=== PATIENT | female | born 1970 | race Caucasian/White ===

== ENCOUNTER 2023-02-06 08:04 | Outpatient (REF) | payer OTHER, SELFPAY ==
[2023-02-06 08:19] LABS: MANUAL DIFF FLAG NO
[2023-02-06 08:31] LABS: Basophils Percent Auto 0.5 % (0-2); Eosinophils Absolute Auto 0.1 X10*3/uL (0.0-0.4); Eosinophils Percent Auto 2.8 % (0-4); Hematocrit 40.5 % (37.0-47.0); Hemoglobin 12.9 g/dl (12.0-16.0); Imm Gran Abs Auto 0.01 X10*3/uL (0.00-0.03); Imm Gran Pct Auto 0.2 % (0.0-0.4); Lymphocytes Absolute Auto 1.9 X10*3/uL (1.2-4.9); Lymphocytes Percent Auto 43.8 % (20-40); Mean Corpuscular HGB Conc 31.9 g/dl (31.0-35.0); Mean Corpuscular Hemoglobin 28.5 pg (27.0-33.0); Mean Corpuscular Volume 89.4 fL (80.0-98.0); Mean Platelet Volume 9.7 fL (9.4-12.3); Monocytes Absolute Auto 0.3 X10*3/uL (0.1-1.2); Monocytes Percent Auto 7.7 % (2-11); Neutrophils Absolute Auto 1.9 x10*3/uL (2.0-8.3); Platelet Count 291 X10*3/uL (160-400); Red Blood Count 4.53 X10*6/uL (4.20-5.50); Red Cell Distribution Width 11.5 % (11.0-16.0); White Blood Count 4.3 X10*3/uL (4.8-10.8)
[2023-02-06 09:05] LABS: Alanine Aminotransferase 13 U/L (0-31); Albumin Level 4.4 g/dL (3.5-5.0); Alkaline Phosphatase 82 U/L (39-117); Anion Gap 15 (12-20); Aspartate Amino Transferase 18 U/L (5-31); Bilirubin Total 0.7 mg/dL (0.0-1.0); Blood Urea Nitrogen 12 mg/dL (9-16); C Reactive Protein 0.17 mg/dL (< or = 0.50); Carbon Dioxide 27 mmol/L (22-29); Chloride 106 mmol/L (96-108); Estimated Glomerular Filt Rate 59; Glucose Random 105 mg/dL (60-115); Potassium 4.8 mmol/L (3.3-5.1); Sodium 143 mmol/L (135-145); Total Protein 6.7 g/dL (6.5-8.0)
[2023-02-06 09:21] LABS: Erythrocyte Sedimentation Rate 2 MM/HR (0-20)
[2023-02-06 09:22] LABS: TSH reflex Free T4 2.93 uIU/mL (0.32-4.0)
== END 2023-02-06 08:05 | disposition home or self-care (01) ==
LOC: HO.LAB 08:04
PROVIDERS: PCP Student in an Organized Health Care Education/Training Program; Visit Provider Student in an Organized Health Care Education/Training Program
DX: M25.50 Pain in unspecified joint (principal); R53.83 Other fatigue
CPT/HCPCS: 36415; 80053; 84443; 85025; 85652; 86140

== ENCOUNTER 2023-11-08 08:32 | Emergency (ER) | payer OTHER, SELFPAY ==
--- NOTE | ~2023-11-08 | CT_ITS ---
EXAMINATION: CT ABDOMEN AND PELVIS WITHOUT CONTRAST CLINICAL INFORMATION: Pain. Question stone. COMPARISON: None. TECHNIQUE: Multidetector volumetric imaging was performed from the superior aspect of the liver through the pubic symphysis. Sagittal and coronal reformatted images were obtained on the technologist workstation. This CT examination was performed using dose optimization techniques as appropriate, variously including the following: *Automated exposure control *Adjustment of mA and/or kV according to patient size (this includes techniques or standardized protocols for targeted exams where dose is matched to indication/reason for exam; i.e. extremities or head) *Use of iterative reconstruction technique DLP: 472.8 mGy-cm. FINDINGS: LUNG BASES: Scattered linear bands of atelectasis seen in the lung bases bilaterally. LIVER, GALLBLADDER, AND BILIARY TREE: The liver is normal in size, shape, and attenuation. No focal hepatic lesion on noncontrast imaging. No biliary ductal dilatation is present. The gallbladder is unremarkable with no evidence of radiopaque gallstones, gallbladder wall thickening, or obvious pericholecystic inflammatory changes. PANCREAS: Unremarkable on noncontrast imaging. SPLEEN: Unremarkable. ADRENAL GLANDS: Unremarkable on noncontrast imaging. KIDNEYS AND URETERS: The kidneys are normal in size, shape, and attenuation. No hydronephrosis, hydroureter, or calculi seen. No perinephric stranding. There is a exophytic 1.9 x 2.9 x 1.9 cm thin-walled avascular cyst in the lower pole of the right kidney, measuring fluid density, consistent with a benign cyst, which warrants no additional imaging follow-up BLADDER: Decompressed and suboptimally assessed, but grossly unremarkable. No bladder calculi.. PELVIC VISCERA: Unremarkable. GASTROINTESTINAL TRACT: The small and large bowel are decompressed. There are scattered descending and sigmoid colonic diverticula with no evidence of acute diverticulitis.. The appendix is retrocecal in location and extends up to the level of Morison's pouch. There is a 0.3 cm density seen in the distal appendix, consistent with a tiny appendicolith. The appendix is otherwise unremarkable. ABDOMINAL WALL: There is a tiny fat-containing umbilical hernia. LYMPH NODES, VASCULAR: Abdominal aorta is normal in caliber with mild atherosclerotic calcifications of the distal abdominal aorta are seen. No periaortic collections. No abdominal or pelvic adenopathy or free fluid. OSSEOUS STRUCTURES: Mild degenerative disc disease and moderate vertebral spondylosis in lower thoracic spine. CT/CT abdomen pelvis wo IV con IMPRESSION: * No evidence of nephrolithiasis or obstructive uropathy. * No acute intra-abdominal or pelvic process seen. * Incidental findings include scattered linear bands of atelectasis in the lung bases, right renal cyst, which warrants no additional imaging follow-up, tiny fat-containing umbilical hernia, and mild atherosclerotic vascular calcifications of the abdominal aorta.
[2023-11-08 08:36] VITALS: BP 178/107; PULSE 88; RESP 16; TEMP 36.9; O2SAT 98; BMI 30.5
--- NOTE | 2023-11-08 09:16 | ED_ITS ---
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 She has history of fibromyalgia prior back pain. Onset (ago): day(s) (2) Location: back Radiation: non-radiation Severity: mild Quality: burning Pain Consistency: constant Relieving factors: none Exacerbating factors: none Associated symptoms: denies other symptoms Related Data Previous Rx's Medication Instructions Recorded diazepam 5 mg tablet (Valium) 5 mg PO BID PRN muscle spasm #7 11/08/23 tabs Allergies Allergy/AdvReac Type Severity Reaction Status Date / Time codeine Allergy Itching Verified 11/08/23 09:06 omeprazole [From Prilosec] Allergy Nausea and Verified 11/08/23 09:06 Vomiting povidone-iodine Allergy Blister Verified 11/08/23 09:06 [From Betadine] adhesive AdvReac Unknown Verified 11/08/23 09:06 Review of Systems 2 Eyes: Eyes: Reports no additional eye complaints ENT: Reports system reviewed and no additional complaints, except as documented Cardiovascular: Cardiovascular: Reports no additional cardiovascular complaints Musculoskeletal: Musculoskeletal: Reports other Comments: Lower back pain PMFSH Past Medical History PMFSH Narrative: Fibromyalgia prior lower back pain Social History Social History Smoked in Last 30 Days: Yes Use of substances other than those prescribed or required for medical reasons: No Advance Directives: No Advance Directives Information Provided: No Patient : No Physical Exam ED Vital Signs: Vital Signs - 24 hr 11/08/23 08:36 11/08/23 11:00 Temperature 98.4 F 97.2 F Pulse Rate 88 63 Respiratory Rate 16 18 Blood Pressure 178/107 H 154/80 H Pulse Oximetry 98 96 Oxygen Delivery Method Room Air Room Air BMI result Body Mass Index 30.5 Const General: cooperative Nutritional Appearance: well nourished Orientation/consciousness: oriented to person and patient oriented x3 Limitations: no limitations HENMT Head: Yes normal to inspection General nose exam: Normal external nose present Face and sinus: Yes normal facial exam Mouth: Normal oral and palatal mucosa present Teeth and gingiva: dentition normal Throat: Yes posterior oropharynx normal Neck Neck: Yes normal visual inspection Thyroid: Thyroid normal Chest Chest palpation & inspection: normal inspection of the chest Resp Effort & Inspection: normal respiratory effort Auscultation: clear to auscultation bilaterally Cardio Jugular venous distension: no JVD Rate: regular rate Rhythm: regular rhythm GI Inspection: Yes normal to inspection Palpation (GI): Soft to palpation and not firm Auscultation: normal bowel sounds General: Yes CVA tenderness and Yes no CVA tenderness Back/Spine/Pelvis Back: no CVA tenderness and CVA tenderness Neuro General: oriented to person and patient oriented x3 Cranial nerves: Yes CN's II-XII intact bilaterally Course Reevaluation(s) Reevaluation #1: Workup completed CT scan shows no acute pathology, labs normal UA clear at this point I think it could discharge her home Time: 11:09 Medical Decision Making Medical Decision Making [facility] Narrative: Patient presented complaining of lower back pain she is ambulatory to the emergency department will obtain imaging UA reassessed Differential Diagnosis Differential Diagnoses: The differential diagnosis associated with the presentation includes Differential diagnosis is kidney stone/ lower back strain muscular strain /urinary tract infection/pyelonephritis Lab Data [facility] Lab Attestation statement: I reviewed the patient's lab results. 11/08/23 09:15 11/08/23 09:15 Labs: Lab Results 11/08/23 Range/Units 09:15 WBC 4.7 L (4.8-10.8) X10*3/uL RBC 4.32 (4.20-5.50) X10*6/uL Hgb 12.7 (12.0-16.0) g/dl Hct 38.6 (37.0-47.0) % MCV 89.4 (80.0-98.0) fL MCH 29.4 (27.0-33.0) pg MCHC 32.9 (31.0-35.0) g/dl RDW 11.3 (11.0-16.0) % Plt Count 226 (160-400) X10*3/uL MPV 9.4 (9.4-12.3) fL Immature Gran % (Auto) 0.2 (0.0-0.4) % Neut % (Auto) 60.2 (45-73) % Lymph % (Auto) 28.7 (20-40) % [place] % (Auto) 8.1 (2-11) % Eos % (Auto) 2.6 (0-4) % Baso % (Auto) 0.2 (0-2) % Lymph # (Auto) 1.3 (1.2-4.9) X10*3/uL [place] # (Auto) 0.4 (0.1-1.2) X10*3/uL Eos # (Auto) 0.1 (0.0-0.4) X10*3/uL Baso # (Auto) 0.0 (0.0-0.2) X10*3/uL Abs Immat Gran (auto) 0.01 (0.00-0.03) X10*3/uL Absolute Neuts (auto) 2.8 (2.0-8.3) x10*3/uL Absolute Nucleated RBC 0.000 (0.0-0.012) X10*3/uL Nucleated RBC % (auto) 0.0 (0.0-0.2) /100WBC Sodium 142 (135-145) mmol/L Potassium 4.1 (3.3-5.1) mmol/L Chloride 109 H (96-108) mmol/L Carbon Dioxide 27 (22-29) mmol/L Anion Gap 10 L (12-20) BUN 14 (9-16) mg/dL Creatinine 0.89 (0.5-1.4) mg/dL Estim Creat Clear Calc 71.4 Estimated GFR > 60 Random Glucose 98 (60-115) mg/dL Calcium 9.1 D (8.4-10.2) mg/dL Total Bilirubin 0.4 (0.0-1.0) mg/dL AST 17 (5-31) U/L ALT 15 (0-31) U/L Alkaline Phosphatase 83 (39-117) U/L Total Protein 6.7 (6.5-8.0) g/dL Albumin 4.1 (3.5-5.0) g/dL Urine Color Yellow Urine Appearance Clear Urine pH 5.0 (5.0-9.0) Ur Specific [place] 1.025 (1.005-1.025) Urine Protein Negative (Neg-Trace) mg/dL Urine Glucose (UA) Negative (Negative) mg/dL Urine Ketones Negative (Negative) mg/dL Urine Blood Negative (Negative) Urine Nitrite Negative (Negative) Ur Leukocyte Esterase Negative (Negative) Urine RBC 0-2 (0-2) /HPF Urine WBC 0-5 (0-5) /HPF Ur Squamous Epith Cells 0-2 (0-2) /HPF Urine Bacteria None Seen (None Seen) Hyaline Casts 0-2 (0-2) /LPF Independent Interpretation I performed an independent interpretation of an: CT Scan Interpretation: CT scan was review personally by me Radiology Impression Discussion of test interpretation with radiology: I have reviewed the radiologist's reading. Prescription Management I considered prescription management with: Other (valium) Discharge Plan Discharge Clinical Impression: Back pain Patient Disposition: Home, Self-Care Instructions: Acute Low Back Pain (ED) Additional Instructions: Follow-up with your primary care physician, return if you worse rest, Prescriptions: New diazepam [Valium] 5 mg tablet 5 mg PO BID PRN (Reason: muscle spasm) Qty: 7 0RF Stand Alone Forms: Work/School Release
[2023-11-08 09:20] LABS: MANUAL DIFF FLAG NO
[2023-11-08 09:21] LABS: Basophils Percent Auto 0.2 % (0-2); Eosinophils Absolute Auto 0.1 X10*3/uL (0.0-0.4); Eosinophils Percent Auto 2.6 % (0-4); Hematocrit 38.6 % (37.0-47.0); Hemoglobin 12.7 g/dl (12.0-16.0); Imm Gran Abs Auto 0.01 X10*3/uL (0.00-0.03); Imm Gran Pct Auto 0.2 % (0.0-0.4); Lymphocytes Absolute Auto 1.3 X10*3/uL (1.2-4.9); Lymphocytes Percent Auto 28.7 % (20-40); Mean Corpuscular HGB Conc 32.9 g/dl (31.0-35.0); Mean Corpuscular Hemoglobin 29.4 pg (27.0-33.0); Mean Corpuscular Volume 89.4 fL (80.0-98.0); Mean Platelet Volume 9.4 fL (9.4-12.3); Monocytes Absolute Auto 0.4 X10*3/uL (0.1-1.2); Monocytes Percent Auto 8.1 % (2-11); Neutrophils Absolute Auto 2.8 x10*3/uL (2.0-8.3); Neutrophils Percent Auto 60.2 % (45-73); Platelet Count 226 X10*3/uL (160-400); Red Blood Count 4.32 X10*6/uL (4.20-5.50); Red Cell Distribution Width 11.3 % (11.0-16.0); White Blood Count 4.7 X10*3/uL (4.8-10.8)
[2023-11-08 09:22] LABS: Appearance Urine Clear; Color Urine Yellow; Glucose Urine UA Negative (Negative); Leukocyte Esterase Urine Negative (Negative); Nitrite Urine Negative (Negative); Specific Gravity - Urine 1.025 (1.005-1.025); Urine Blood Negative (Negative); Urine Ketones Negative (Negative); Urine Protein Negative (Neg-Trace)
[2023-11-08 09:27] LABS: Bacteria Urine None Seen (None Seen); Hyaline Casts Urine 0-2 /LPF (0-2); RBC Urine 0-2 /HPF (0-2); Squamous Epithelial Cell Urine 0-2 /HPF (0-2); WBC Urine 0-5 /HPF (0-5)
[2023-11-08 09:35] LABS: Alanine Aminotransferase 15 U/L (0-31); Albumin Level 4.1 g/dL (3.5-5.0); Alkaline Phosphatase 83 U/L (39-117); Anion Gap 10 (12-20); Aspartate Amino Transferase 17 U/L (5-31); Bilirubin Total 0.4 mg/dL (0.0-1.0); Blood Urea Nitrogen 14 mg/dL (9-16); Calcium 9.1 mg/dL (8.4-10.2); Carbon Dioxide 27 mmol/L (22-29); Chloride 109 mmol/L (96-108); Creatinine Clr Calc Pharmacy 71.4; Estimated Glomerular Filt Rate > 60; Glucose Random 98 mg/dL (60-115); Potassium 4.1 mmol/L (3.3-5.1); Sodium 142 mmol/L (135-145); Total Protein 6.7 g/dL (6.5-8.0)
--- NOTE | 2023-11-08 09:45 | PC.NURSE ---
pt to ct-scan via stretcher.
--- NOTE | 2023-11-08 10:15 | PC.NURSE ---
pt return fro ct scan
[2023-11-08 11:00] VITALS: BP 154/80; PULSE 63; RESP 18; TEMP 36.2; O2SAT 96
== END 2023-11-08 11:23 | disposition home or self-care (01) ==
PROVIDERS: Emergency Provider Emergency Medicine; PCP Registered Nurse
DX: M54.50 Low back pain, unspecified (principal); M62.830 Muscle spasm of back; M79.7 Fibromyalgia; R10.2 Pelvic and perineal pain
CPT/HCPCS: 36415; 74176; 80053; 81001; 85025; 99284

== ENCOUNTER 2023-11-10 11:29 | Emergency (ER) | payer OTHER, SELFPAY ==
[2023-11-10 11:50] VITALS: BP 146/99; PULSE 77; RESP 19; TEMP 36.6; O2SAT 99; BMI 30.5
--- NOTE | 2023-11-10 12:02 | ED.GENADULT ---
HPI - General Adult General Chief complaint: Back Pain/Injury Stated complaint: Back Pain Spasms Time Seen by Provider: 11/10/23 14:26 Source: patient Mode of arrival: ambulatory Limitations: no limitations History of Present Illness HPI narrative: This a 53-year-old female history of fibromyalgia, previous back pain presenting to the emergency department complaining of back pain and spasms for the past week not improving. Patient reports back spasms are localized to the lower back, free of radiation and not associated w/ weakness, numbness, tingling, fevers chillls, urinary or bowel incontience/retention. She reports back pain/spasms worse with movement and better at rest. Back pain not a/c w/ trauma or heavy lifting. feels like her typical back pain just not improving with the medication that was sent to her a few days ago ( valium). 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 Related Data Previous Rx's Medication Instructions Recorded diazepam 5 mg tablet (Valium) 5 mg PO BID PRN muscle spasm #7 11/08/23 tabs ketorolac 10 mg tablet 10 mg PO TID PRN pain 5 days #15 11/10/23 tabs prednisone 20 mg tablet 40 mg (2 x 20 mg) PO DAILY 5 days 11/10/23 #10 tabs Allergies Allergy/AdvReac Type Severity Reaction Status Date / Time codeine Allergy Itching Verified 11/10/23 11:50 omeprazole [From Prilosec] Allergy Nausea and Verified 11/10/23 11:50 Vomiting povidone-iodine Allergy Blister Verified 11/10/23 11:50 [From Betadine] adhesive AdvReac Unknown Verified 11/10/23 11:50 Review of Systems Review of Systems: Yes all other systems are reviewed and are negative [facility] Past Medical History Attestation statement: The following information was validated with the patient. Source: old records reviewed and nursing notes reviewed Social History Social History Advance Directives: No Physical Exam ED Vital Signs: Vital Signs - 24 hr 11/10/23 11:50 11/10/23 16:00 Temperature 98 F 98.7 F Pulse Rate 77 63 Respiratory Rate 19 16 Blood Pressure 146/99 H 153/75 H Pulse Oximetry 99 97 Oxygen Delivery Method Room Air Room Air BMI result Body Mass Index 30.5 Vital signs stable Appearance: Alert.? Oriented X3.? No acute distress.? Head: Normocephalic, atraumatic, no step-offs or deformities Eyes: Pupils equal, round and reactive to light.? CVS: Normal heart rate and rhythm.? Pulses normal.? Respiratory: No respiratory distress.? Breath sounds normal.? Abdomen: Soft and nontender.? Skin: Skin warm and dry.? Normal skin color.? Normal skin turgor.? Extremities: No lower extremity edema.? No calf ttp. 5/5 strength to bilateral upper and lower extremities Back: No midline tenderness, no C-spine tenderness, full range of motion, no CVA tenderness bilaterally lumbar bilateral paraspinous muscle spasm/tenderness on palpation. No saddle paresthesias. Ambulating with steady gait normal coordination. Normal lower extremity reflexes. No midline back pain. No step-offs or deformities to spine. No overlying skin changes Neuro: Oriented X 3.? No motor deficit.? No sensory deficit. CN 2-12 intact Course Course Course Narrative: RME: 53 yold female return to the ED for worsening lower back pain and lower abdominal pain. back described as spasm. Patient was seen here recently for same symptoms and states symptoms worsened. No urinary.bowel incontincence. TO be evaluated in [facility]. Reevaluation(s) Reevaluation #1: UA without infection. Urine negative. COVID negative. Patient reports pain has improved now or 10/31 Educated patient on diagnosis and treatment plan, answered all question, patient verbalizes understanding. At this time patient will be discharged home, advised to return with new or worsening symptoms. Educated on worrisome signs and symptoms and when to return. At this time I feel comfortable discharge home. Time: 17:06 Medications Administered Discontinued Medications Generic Name Dose Route Start Last Admin Trade Name Freq PRN Reason Stop Dose Admin Ketorolac Tromethamine 30 mg 11/10/23 12:09 11/10/23 14:26 Ketorolac Tromethamine 30 Mg/Ml Vial IM 11/10/23 12:10 30 mg ONCE ONE Administration Medical Decision Making Medical Decision Making MDM Narrative: 53-year-old female presents with lower back pain times a week not improving despite Valium. Patient was seen here on 11/08/[address] where she [address] a CT done which was unremarkable as well as an unremarkable urine. Physical exam with lumbar bilateral paraspinous muscle spasm/tenderness on palpation. No saddle paresthesias. Ambulating with steady gait normal coordination. Normal lower extremity reflexes. No midline back pain. No step-offs or deformities to spine. No overlying skin changes History and physical exam concerning for a lumbar spasm/strain versus lumbago versus lumbar radiculopathy versus herniated disc. Unlikely cord compression cauda equina, UTI, pyelonephritis, kidney stone. Plan at this time UA. No indication for repeat scan. Will give Toradol for pain control and Lidoderm patch. Differential Diagnosis Differential Diagnoses: The differential diagnosis associated with the presentation includes History and physical exam concerning for a lumbar spasm/strain versus lumbago versus lumbar radiculopathy versus herniated disc. Unlikely cord compression cauda equina, UTI, pyelonephritis, kidney stone. Lab Data Labs: Lab Results 11/10/23 11/10/23 Range/Units 16:04 16:41 Urine Color Yellow Urine Appearance Clear Urine pH 5.5 (5.0-9.0) Ur Specific [place] 1.025 (1.005-1.025) Urine Protein Negative (Neg-Trace) mg/dL Urine Glucose (UA) Negative (Negative) mg/dL Urine Ketones Negative (Negative) mg/dL Urine Blood Negative (Negative) Urine Nitrite Negative (Negative) Ur Leukocyte Esterase Negative (Negative) Urine Test NEGATIVE (NEGATIVE) COVID-19 ([place]) Negative (Negative) COVID-19 Clin Com See Note Discharge Plan Discharge Clinical Impression: Lumbar paraspinal muscle spasm Patient Disposition: Home, Self-Care Instructions: Muscle Spasm (ED), Back Pain (ED), Warm Compress or Soak (ED) Additional Instructions: Take your medications as prescribed. If you were prescribed antibiotics today, it is important that you take your medication to their entirety, do not skip any doses, do not finish them early. Follow-up with your primary care provider this week. Return to the emergency department with new or worsening symptoms. Such as fevers, chills, chest pain, shortness of breath, nausea, vomiting, dizziness, headache, vision changes, lethargy In case of emergency call 911 Toradol has been sent to your pharmacy, you tolerated this well in the department. Please take this as prescribed do not take this with ibuprofen, or other NSAIDs, do not mix this with alcohol. Side effects of this medication including increased risk for bleeding and possible kidney injury. Follow-up with spine and sport if needed. Prescriptions: New prednisone 20 mg tablet 40 mg PO DAILY 5 Days Qty: 10 0RF ketorolac 10 mg tablet 10 mg PO TID PRN (Reason: pain) 5 Days Qty: 15 0RF No Action diazepam [Valium] 5 mg tablet 5 mg PO BID PRN (Reason: muscle spasm) Qty: 7 0RF Referrals: [facility] [Provider Group] - 2 days Mayra Amador PA-C [Primary Care Provider] - 2 days Stand Alone Forms: Work/School Release Interventions: ED Discharge Assessment Last Done: 11/10/23 17:17 Discharge Date/Time: 11/10/23 17:18
[2023-11-10] MEDS: Ketorolac Tromethamine 30 MG/ML VIAL IM (14:26)
--- NOTE | 2023-11-10 14:27 | PC.NURSE ---
patient a&ox3, pt c/o lower back pain which has been ongoing, recently had a ct scan per pt, pt states that she is having spasms causing 4/10 pain, pt tearfil upon this nurse being in room. pt medicated for pain per order. will continue to monitor.
[2023-11-10 16:00] VITALS: BP 153/75; PULSE 63; RESP 16; TEMP 37.1; O2SAT 97
[2023-11-10 16:13] LABS: Appearance Urine Clear; Color Urine Yellow; Glucose Urine UA Negative (Negative); Leukocyte Esterase Urine Negative (Negative); Nitrite Urine Negative (Negative); PH 5.5 (5.0-9.0); Specific Gravity - Urine 1.025 (1.005-1.025); Urine Blood Negative (Negative); Urine Ketones Negative (Negative); Urine Protein Negative (Neg-Trace)
[2023-11-10 16:14] LABS: UPreg QC Valid YES; Urine Pregnancy NEGATIVE (NEGATIVE)
--- NOTE | 2023-11-10 16:44 | PC.NURSE ---
nasal swab obtained
[2023-11-10 17:00] LABS: COVID-19 Test Negative (Negative); IDNOW Serial# 152EDE1D
== END 2023-11-10 17:18 | disposition home or self-care (01) ==
PROVIDERS: Physician Assistant; Emergency Provider Emergency Medicine; PCP Registered Nurse
DX: M54.50 Low back pain, unspecified (principal); Z11.52 Encounter for screening for COVID-19; Z79.899 Other long term (current) drug therapy
CPT/HCPCS: 81003; 81025; 87635; 96372; 99284; J1885

== ENCOUNTER 2023-11-23 08:55 | Outpatient (REF) | payer OTHER, SELFPAY ==
--- NOTE | ~2023-11-23 | XR_ITS ---
EXAMINATION: XR LUMBAR SPINE XR THORACIC SPINE CLINICAL INDICATION: Patient states no injury. Fibromyalgia, pain, spasm. COMPARISON: CT abdomen and pelvis of 11/08/2023. FINDINGS: THORACIC SPINE: Mild rightward curvature of the thoracic spine. Advanced multilevel degenerative changes in the thoracic spine. The bones are diffusely demineralized. Mild superior and inferior endplate concavities at lower thoracic vertebral bodies of indeterminate age. LUMBAR SPINE: Mild rightward curvature of the lumbar spine. Moderate degenerative changes in the bilateral sacroiliac joints. Facet arthritis in the lower lumbar spine. Moderate multilevel lumbar spondylosis. XR/XR lumbar spine 2-3V IMPRESSION: 1. Advanced multilevel degenerative changes in the thoracic spine. 2. Moderate multilevel lumbar spondylosis. 3. Facet arthritis in the lower lumbar spine. 4. Moderate degenerative changes in the bilateral sacroiliac joints.
--- NOTE | ~2023-11-23 | XR_ITS ---
EXAMINATION: XR LUMBAR SPINE XR THORACIC SPINE CLINICAL INDICATION: Patient states no injury. Fibromyalgia, pain, spasm. COMPARISON: CT abdomen and pelvis of 11/08/2023. FINDINGS: THORACIC SPINE: Mild rightward curvature of the thoracic spine. Advanced multilevel degenerative changes in the thoracic spine. The bones are diffusely demineralized. Mild superior and inferior endplate concavities at lower thoracic vertebral bodies of indeterminate age. LUMBAR SPINE: Mild rightward curvature of the lumbar spine. Moderate degenerative changes in the bilateral sacroiliac joints. Facet arthritis in the lower lumbar spine. Moderate multilevel lumbar spondylosis. XR/XR thoracic spine 2V IMPRESSION: 1. Advanced multilevel degenerative changes in the thoracic spine. 2. Moderate multilevel lumbar spondylosis. 3. Facet arthritis in the lower lumbar spine. 4. Moderate degenerative changes in the bilateral sacroiliac joints.
== END 2023-11-23 08:56 | disposition home or self-care (01) ==
LOC: HO.XRAY 08:55
PROVIDERS: PCP Registered Nurse; Visit Provider Registered Nurse
DX: M54.6 Pain in thoracic spine (principal); M54.50 Low back pain, unspecified
CPT/HCPCS: 72070; 72100

== ENCOUNTER 2024-02-12 13:39 | Emergency (ER) | payer OTHER, SELFPAY ==
--- NOTE | ~2024-02-12 | CT_ITS ---
EXAMINATION: CT ANGIOGRAM OF THE CHEST WITH AND WITHOUT CONTRAST (CT PULMONARY ANGIOGRAM FOR PE) CLINICAL INFORMATION: Left chest pain, factor 5 Leiden deficiency COMPARISON: None available. TECHNIQUE: Prior to contrast administration, noncontrast localization images were obtained. Subsequently, multidetector volumetric imaging was performed from the thoracic inlet to below the diaphragms following the administration of 65 mL Omnipaque 350 intravenous contrast. No contrast reaction reported Sagittal, coronal, and MIP oblique sagittal reformatted images were obtained on the CT workstation, uploaded to PACS, and reviewed. This CT examination was performed using dose optimization techniques as appropriate, variously including the following: *Automated exposure control *Adjustment of mA and/or kV according to patient size (this includes techniques or standardized protocols for targeted exams where dose is matched to indication/reason for exam; i.e. extremities or head) *Use of iterative reconstruction technique Total exam dose-length product 249 mGy-cm FINDINGS: QUALITY OF STUDY/CONTRAST BOLUS: Satisfactory. PULMONARY ARTERIES: No pulmonary emboli. THORACIC AORTA: No aneurysm. LUNG: No focal consolidation, nodules or masses. Left lung base platelike atelectasis. Dependent bilateral subsegmental atelectasis. PLEURA: No pleural effusion or pneumothorax. MEDIASTINUM: Normal heart size. No pericardial effusion. No hilar or mediastinal lymphadenopathy. No evidence of septal bowing or right heart strain. CORONARY ARTERY CALCIFICATION: None visualized on this study. CHEST WALL/AXILLA: No axillary or internal mammary lymphadenopathy. OSSEOUS STRUCTURES: No acute or suspicious osseous abnormality. Multilevel thoracic degenerative disc disease. UPPER ABDOMEN: Mild colonic diverticulosis without evidence of acute diverticulitis. No reflux of contrast into the hepatic veins to suggest elevated right heart pressures. CT/CT angio chest PE protocol IMPRESSION: 1. No acute pulmonary embolism. 2. No acute abnormality within the chest. VTE: negative.
--- NOTE | ~2024-02-12 | XR_ITS ---
EXAMINATION: XR CHEST CLINICAL INFORMATION: Chest pain. COMPARISON: CT scan of November 08, 2023. TECHNIQUE: 2 views of the chest were obtained. FINDINGS: Left lower lobe scarring again noted. There is no evidence of acute parenchymal disease, pneumothorax, or pleural effusion. Heart normal size. No evidence of pulmonary edema. XR/XR chest 2V IMPRESSION: No acute disease.
[2024-02-12 14:01] VITALS: BP 132/78; PULSE 105; RESP 20; TEMP 36.3; O2SAT 98; BMI 30.9
--- NOTE | 2024-02-12 14:01 | ED_ITS ---
HPI - Chest Pain General Chief Complaint: Chest Pain Stated Complaint: chest pain Time Seen by Provider: 02/12/24 14:13 Source: patient Mode of arrival: ambulatory Limitations: no limitations History of Present Illness ED Provider: Dr. Jos Traore HPI narrative: 53-year-old female with a history of fibromyalgia, migraine headaches, IBS, Leiden factor 5 deficiency gene who presents emergency department for evaluation of left-sided chest pain for proximally 1.5 weeks. Patient states that the pain is located under her left breast travels around her lateral chest to her back. She states the pain is been a constant, dull pain since onset. She states she had associated nausea. The pain is sharp and is worse with breathing. She does feel short of breath and has dyspnea on exertion. She states that the pain change this morning at 04:00 hours and became very sharp in radiated from the front to her back which concerned her. She states she has been under a lot of stress secondary to her job and the fact that her father is not well with Parkinson's disease and dementia. Patient states that he she did travel to a wedding several weeks prior which was in [place]. She states that it was a [address]. She has not noticed any pain or swelling in her extremities. She has not on estrogen supplements. Related Data Previous Rx's ?Medication ?Instructions ?Recorded diazepam 5 mg tablet (Valium) 5 mg PO BID PRN muscle spasm #7 11/08/23 tabs ketorolac 10 mg tablet 10 mg PO TID PRN pain 5 days #15 11/10/23 tabs prednisone 20 mg tablet 40 mg (2 x 20 mg) PO DAILY 5 days 11/10/23 #10 tabs Allergies Allergy/AdvReac Type Severity Reaction Status Date / Time codeine Allergy Itching Verified 02/12/24 14:03 omeprazole [From Prilosec] Allergy Nausea and Verified 02/12/24 14:03 Vomiting povidone-iodine Allergy Blister Verified 02/12/24 14:03 [From Betadine] adhesive AdvReac Unknown Verified 02/12/24 14:03 Review of Systems 2 Review of Systems: Yes all other systems are reviewed and are negative [facility] Past Medical History [facility] Narrative: Social history: She denies tobacco use. She does drink alcohol occasionally. She denies drug use. Medical History (Updated 02/12/24 @ 15:23 by Jos Traore MD) Hiatal hernia Fibromyalgia IBS (irritable bowel syndrome) Carpal tunnel syndrome Post-tubal ligation syndrome Surgical History (Updated 02/12/24 @ 14:54 by Christin Francis RN) H/O shoulder surgery Total knee replacement status Social History Social History Alcohol intake: current Alcohol intake frequency: holidays/special occasions only Smoked in Last 30 Days: No Use of substances other than those prescribed or required for medical reasons: No Advance Directives: No Patient : No Physical Exam 2 Vital Signs: Vital Signs: Last Vital Signs Temp 98.3 F 02/12/24 16:35 Pulse 56 02/12/24 16:35 Resp 10 L 02/12/24 16:35 BP 132/72 02/12/24 16:35 Pulse Ox 96 02/12/24 16:35 O2 Del Method Room Air 02/12/24 16:35 BMI result Body Mass Index 30.9 Vital signs did reveal an elevated heart rate of 105 and elevated respiratory rate of 20. Exam: General: Awake, alert, appears to be in distress secondary to her pain and she is anxious as well. Head: Normocephalic, atraumatic EENT: PERRL, Lids normal, sclera normal, conjunctiva normal, nose normal , ears normal, throat without erythema or exudates Neck: Supple, no adenopathy Lung: breath sounds symmetric, no wheezing, rales or rhonchi Chest: Patient does have tenderness palpation of her left anterior chest wall, there are no rashes or lesions noted in the area of her pain Heart: regular rate and rhythm, normal S1, S2 no murmurs or rubs Abdomen: soft, non-tender, nondistended, normal bowel sounds Back: no vertebral tenderness, no CVAT Extremities: no deformities, moves all extremities symmetrically Neuro: Awake, alert, oriented, normal speech, cranial nerves intact, moves all extremities symmetrically Psych: Pleasant, cooperative Course Course Course Narrative: This is an RME: Additional HPI, ROS, PE not included below will be deferred to primary provider. RME assessment and note performed by: Maribel Foster PA-C This is a [id number]-female, with a hx of fibromylagia, GERD, and IBS, who presents to the ER with a complaint of left sided chest pain x 1 week, worsening today. Endorsing nausea since today. Plan: Labs, EKG, UA, CXR Medications Administered Discontinued Medications Generic Name Dose Route Start Last Admin Trade Name [place] PRN Reason Stop Dose Admin Sodium Chloride 1,000 mls @ 999 mls/hr 02/12/24 14:33 02/12/24 16:48 Ns IV 02/12/24 15:33 Infused .Q1H1M STA Infusion Iohexol 100 ml 02/12/24 15:33 02/12/24 15:33 Iohexol 350 Mg/Ml 100 Ml Infus..Btl IV 02/12/24 15:34 65 ml ONCE ONE Administration Ketorolac Tromethamine 15 mg 02/12/24 14:33 02/12/24 14:49 Ketorolac Tromethamine 15 Mg/Ml Vial IVPUSH 02/12/24 14:34 15 mg ONCE STA Administration Morphine Sulfate 4 mg 02/12/24 14:33 02/12/24 14:49 Morphine Sulfate 4 Mg/Ml Cartridge IVPUSH 02/12/24 14:34 4 mg ONCE STA Administration Protocol Ondansetron HCl 4 mg 02/12/24 14:25 02/12/24 14:29 Ondansetron Hcl 4 Mg/2 Ml Vial IVPUSH 02/12/24 14:26 4 mg ONCE ONE Administration Medical Decision Making Medical Decision Making MDM Narrative: 53-year-old female with a history of fibromyalgia, migraine headaches, IBS, Leiden factor 5 deficiency gene who presents emergency department for evaluation of left-sided chest pain for proximally 1.5 weeks. Pain is been a constant, dull ache but change last now is now as sharp pain that radiates from front to back. Patient states the pain is worse with breathing and she does feel short of breath but dyspnea on exertion. Patient did travel to [place] 2 weeks prior which was a [address] She also states she has been under increased stress secondary to change in jobs and secondary to her father being ill. Vital signs did reveal an elevated heart rate and elevated respiratory rate. Physical examination did reveal that she was anxious with left chest wall tenderness. Differential diagnosis: ?Includes but is not limited to musculoskeletal pain, fibromyalgia flare up, myocardial infarction, myocardial ischemia, pulmonary embolism, herpes zoster Course: 16:18 My independent interpretation patient's laboratory evaluation is as follows: CBC was normal. Coags were normal including a below detectable limits D-dimer. CMP was normal. High sensitive troponin I was below detectable limits. CK was normal. Twelve EKG did reveal less than [address] segment depression V3 through V6 with no old EKG for comparison. The patient has had chest pain for proximally 1.5 weeks with change in her pain since 04:00 hours this morning. Given the fact that her troponin is below detectable limits I doubt that her symptoms are due to myocardial infarction/myocardial injury. Patient was treated with normal saline IV x1 L, Toradol 15 mg IV, morphine 4 mg IV, and Zofran 4 mg IV with improvement of her pain. At the end of my shift, patient's CT pulmonary angiogram result is pending therefore the patient's care was turned over to my colleague, Dr. Jermaine Decker. CTA chest negative for PE will discharge patient home for atypical chest pain Admission/Observation Consideration of admission/observation: Escalation of care including admission/observation considered Lab Data MDM Lab Attestation statement: I reviewed the patient's lab results. 02/12/24 14:19 02/12/24 14:19 Labs: Lab Results 02/12/24 02/12/24 Range/Units 14:19 17:31 WBC 4.9 (4.8-10.8) X10*3/uL RBC 4.40 (4.20-5.50) X10*6/uL Hgb 13.0 (12.0-16.0) g/dl Hct 38.4 (37.0-47.0) % MCV 87.3 (80.0-98.0) fL MCH 29.5 (27.0-33.0) pg MCHC 33.9 (31.0-35.0) g/dl RDW 11.7 (11.0-16.0) % Plt Count 294 D (160-400) X10*3/uL MPV 9.6 (9.4-12.3) fL Immature Gran % (Auto) 0.2 (0.0-0.4) % Neut % (Auto) 55.1 (45-73) % Lymph % (Auto) 36.2 (20-40) % [place] % (Auto) 6.7 (2-11) % Eos % (Auto) 1.4 (0-4) % Baso % (Auto) 0.4 (0-2) % Lymph # (Auto) 1.8 (1.2-4.9) X10*3/uL [place] # (Auto) 0.3 (0.1-1.2) X10*3/uL Eos # (Auto) 0.1 (0.0-0.4) X10*3/uL Baso # (Auto) 0.0 (0.0-0.2) X10*3/uL Abs Immat Gran (auto) 0.01 (0.00-0.03) X10*3/uL Absolute Neuts (auto) 2.7 (2.0-8.3) x10*3/uL Absolute Nucleated RBC 0.000 (0.0-0.012) X10*3/uL Nucleated RBC % (auto) 0.0 (0.0-0.2) /100WBC PT 11.7 (11.1-13.3) SEC INR 1.0 (0.9-1.1) APTT 32.4 (26.0-36.8) SEC D-Dimer High Sensitivty < 150 NG/ML Sodium 142 (135-145) mmol/L Potassium 3.7 (3.3-5.1) mmol/L Chloride 110 H (96-108) mmol/L Carbon Dioxide 23 (22-29) mmol/L Anion Gap 13 (12-20) BUN 12 (9-16) mg/dL Creatinine 0.83 (0.5-1.4) mg/dL Estim Creat Clear Calc 77.2 Estimated GFR > 60 Random Glucose 95 (60-115) mg/dL Calcium 9.9 D (8.4-10.2) mg/dL Total Bilirubin 0.6 (0.0-1.0) mg/dL Direct Bilirubin 0.2 (0.0-0.5) mg/dL AST 16 (5-31) U/L ALT 13 (0-31) U/L Alkaline Phosphatase 75 (39-117) U/L Total Creatine Kinase 43 (26-140) U/L Troponin I High Sens < 2.7 (<3.5-17.0) ng/L Total Protein 7.1 (6.5-8.0) g/dL Albumin 4.5 (3.5-5.0) g/dL Urine Color Yellow Urine Appearance Clear Urine pH 5.5 (5.0-9.0) Ur Specific [place] >= 1.030 H (1.005-1.025) Urine Protein Negative (Neg-Trace) mg/dL Urine Glucose (UA) Negative (Negative) mg/dL Urine Ketones Negative (Negative) mg/dL Urine Blood Negative (Negative) Urine Nitrite Negative (Negative) Ur Leukocyte Esterase Negative (Negative) Independent Interpretation I performed an independent interpretation of an: EKG Interpretation: My interpretation patient's 12 EKG done at 13:43 hours is as follows: Normal sinus rhythm with a rate of 99, normal PA interval, QRS duration and QTC interval, no ST segment elevation, less than [address] segment depression V3 through V6, no significant T-wave abnormalities, no PACs, no PVCs. No old EKG for comparison Chronic Conditions Patient?s care impacted by: Other (Fibromyalgia) Discharge Plan Discharge Clinical Impression: Chest pain Patient Disposition: Still a Patient Prescriptions: No Action diazepam [Valium] 5 mg tablet 5 mg PO BID PRN (Reason: muscle spasm) Qty: 7 0RF prednisone 20 mg tablet 40 mg PO DAILY 5 Days Qty: 10 0RF ketorolac 10 mg tablet 10 mg PO TID PRN (Reason: pain) 5 Days Qty: 15 0RF Print Language: Lithuanian
[2024-02-12 14:22] LABS: MANUAL DIFF FLAG NO
[2024-02-12 14:26] LABS: Basophils Percent Auto 0.4 % (0-2); Eosinophils Absolute Auto 0.1 X10*3/uL (0.0-0.4); Eosinophils Percent Auto 1.4 % (0-4); Hematocrit 38.4 % (37.0-47.0); Imm Gran Abs Auto 0.01 X10*3/uL (0.00-0.03); Imm Gran Pct Auto 0.2 % (0.0-0.4); Lymphocytes Absolute Auto 1.8 X10*3/uL (1.2-4.9); Lymphocytes Percent Auto 36.2 % (20-40); Mean Corpuscular HGB Conc 33.9 g/dl (31.0-35.0); Mean Corpuscular Hemoglobin 29.5 pg (27.0-33.0); Mean Corpuscular Volume 87.3 fL (80.0-98.0); Mean Platelet Volume 9.6 fL (9.4-12.3); Monocytes Absolute Auto 0.3 X10*3/uL (0.1-1.2); Monocytes Percent Auto 6.7 % (2-11); Neutrophils Absolute Auto 2.7 x10*3/uL (2.0-8.3); Neutrophils Percent Auto 55.1 % (45-73); Platelet Count 294 X10*3/uL (160-400); Red Cell Distribution Width 11.7 % (11.0-16.0); White Blood Count 4.9 X10*3/uL (4.8-10.8)
[2024-02-12] MEDS: ondansetron HCL 4 MG/2 ML VIAL IVPUSH (14:29)
[2024-02-12 14:31] LABS: Prothrombin Time 11.7 SEC (11.1-13.3)
[2024-02-12 14:34] LABS: Partial Thromboplastin Time 32.4 SEC (26.0-36.8)
--- NOTE | 2024-02-12 14:34 | ECG_ITS ---
Test Reason : CP Blood Pressure : / mmHG Vent. Rate : 099 BPM Atrial Rate : 099 BPM P-R Int : 124 ms QRS Dur : 080 ms QT Int : 354 ms P-R-T Axes : 052 053 -09 degrees QTc Int : 454 ms Normal sinus rhythm with sinus arrhythmia Nonspecific ST and T wave abnormality Abnormal ECG No previous ECGs available Referred By: Jos Traore Electronically Signed By:Ton Long
--- NOTE | 2024-02-12 14:39 | PC.NURSE ---
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
[2024-02-12 14:49] LABS: D Dimer High Sensitivity < 150 NG/ML
[2024-02-12] MEDS: Morphine Sulfate 4 MG/ML CARTRIDGE IVPUSH (14:49)
[2024-02-12] MEDS: 0.9 % Sodium Chloride 1,000 ML 999 ML IV (14:49)
[2024-02-12] MEDS: Ketorolac Tromethamine 15 MG/ML VIAL IVPUSH (14:49)
[2024-02-12 14:50] LABS: Alanine Aminotransferase 13 U/L (0-31); Albumin Level 4.5 g/dL (3.5-5.0); Alkaline Phosphatase 75 U/L (39-117); Anion Gap 13 (12-20); Aspartate Amino Transferase 16 U/L (5-31); Bilirubin Direct 0.2 mg/dL (0.0-0.5); Bilirubin Total 0.6 mg/dL (0.0-1.0); Blood Urea Nitrogen 12 mg/dL (9-16); Calcium 9.9 mg/dL (8.4-10.2); Carbon Dioxide 23 mmol/L (22-29); Chloride 110 mmol/L (96-108); Creatinine Clr Calc Pharmacy 77.2; Estimated Glomerular Filt Rate > 60; Glucose Random 95 mg/dL (60-115); Potassium 3.7 mmol/L (3.3-5.1); Sodium 142 mmol/L (135-145); Total Protein 7.1 g/dL (6.5-8.0)
--- NOTE | 2024-02-12 14:57 | PC.NURSE ---
ivf hung per order, pt medicated for 5/10 pain per order
[2024-02-12 14:58] LABS: Troponin-I High Sensitivity < 2.7 ng/L (<3.5-17.0)
[2024-02-12] MEDS: iohexoL 350 MG/ML 100 ML INFUS..BTL IV (15:33)
[2024-02-12 16:35] VITALS: BP 132/72; PULSE 56; RESP 10; TEMP 36.8; O2SAT 96
[2024-02-12 17:37] LABS: Appearance Urine Clear; Color Urine Yellow; Glucose Urine UA Negative (Negative); Leukocyte Esterase Urine Negative (Negative); Nitrite Urine Negative (Negative); PH 5.5 (5.0-9.0); Specific Gravity - Urine >= 1.030 (1.005-1.025); Urine Blood Negative (Negative); Urine Ketones Negative (Negative); Urine Protein Negative (Neg-Trace)
[2024-02-12 18:23] VITALS: BP 151/61; PULSE 64; RESP 14; TEMP 36.6; O2SAT 98
[2024-02-12 18:28] VITALS: BP 151/61; PULSE 64; RESP 14; TEMP 36.6; O2SAT 98
== END 2024-02-12 18:29 | disposition home or self-care (01) ==
PROVIDERS: Emergency Medicine Emergency Medical Services; Physician Assistant Medical; Emergency Provider Internal Medicine; PCP Registered Nurse
DX: R07.9 Chest pain, unspecified (principal); D68.51 Activated protein C resistance; R11.0 Nausea; R06.02 Shortness of breath; R06.00 Dyspnea, unspecified; M79.7 Fibromyalgia; G56.00 Carpal tunnel syndrome, unspecified upper limb
CPT/HCPCS: 36415; 71046; 71275; 80048; 80076; 81003; 82550; 84484; 85025; 85379; 85610; 85730; 93005; 96361; 96374; 96375; 99284; 99285; J1885; J2270; J2405; Q9967

== ENCOUNTER → 2024-02-12 14:34 | Outpatient (BNV) | payer OTHER, SELFPAY | PROVIDERS: Emergency Provider Internal Medicine; PCP Registered Nurse; Visit Provider Internal Medicine Cardiovascular Disease | DX: R94.31 Abnormal electrocardiogram [ECG] [EKG] (principal) | CPT/HCPCS: 93010 ==